=== PATIENT | female | born 1975 | race African-American/Black ===

== ENCOUNTER 2016-08-08 22:24 | Inpatient (IN) | payer BC ==
--- NOTE | ~2016-08-08 | A ---
[facility] Nutrition Therapy DATE: 08/10/16 Patient: MARY JANE DELANEY Physician: NIDHI Address: [facility] [facility] Room/Bed: [address] [place] [address], Zip: [place] [address] Admit Date: 08/09/16 Date of : [birth year] Height: 5 9 Weight: 276 125.2 NUTRITIONAL ASSESSMENT: REASON: Consult RE: diabetic diet education + High BMI documentation 40 yo female admitted for R thigh abscess w/ cellulitis Anthropometrics: Ht: 5'9" Wt: 125.5 kg (276#) BMI: 40.9 Assessment: RD corporate communications intern provided written and verbal diabetic diet education. Pt reported eating "whatever she wants" but has started making small changes in her diet. Pt reported consuming ~2 meals/d, stating it was hard to eat healthy d/t work schedule. RD corporate communications intern encourgaed eating consistently throughout the day and emphasized importance of portion control and meal planning. Pt reported recently intentionally losing ~15# and wanting to continue to lose weight. RD corporate communications intern encouraged continuation of weight loss. Pt verbalized understanding of the topic. Pt had no diet questions at this time. Expect mild compliance with diet when d/c'd. Intervention: 1. Consistent carb Recommendations: 1. Continue consistent carb diet to promote gradual weight loss towards healthy BMI. 2. Encourage compliance with diabetic diet. 3. Re-consult RD if further diet education if needed/requested. RD will f/u per protocol. Respectfully, Haven Whitt, Territory Manager Estrella Melendez MS, RD, LD Food and Nutritional Services [facility] cc: client file
--- NOTE | ~2016-08-08 | DS ---
Unit #: [id number] #: [id number] Patient: MARY JANE DELANEY [id number] [address] [address] [id number] I MR#: [id number] NAME: MARY JANE DELANEY ROOM: [facility] Age: 40 Sex: F Admission Date: 08/09/2016 : 1975 Discharge Date: 08/11/2016 Attending Physician: Brock Wilcox M.D. Primary Care Physician: No Primary Care Physician DISCHARGE SUMMARY HISTORY AND HOSPITAL COURSE Ms. Delaney is a 40-year-old female with a history of diabetes who presented to the emergency room with an abscess in the right medial thigh. It had partially spontaneously drained at home and there was associated cellulitis and necrotic tissue. She was taken to the operating room for drainage and debridement and, on evaluation, there was significant undermining so the wound was debrided widely and saucerized to facilitate wound care. All of the infected necrotic tissue was excised. She was admitted and dressing changes were initiated and the patient was tolerating dressing changes well. [facility] has been consulted to follow the patient at home. Her cellulitis has resolved and her laboratories are unremarkable. Her cultures grew out Staph. epidermidis. DISPOSITION Patient will be discharged home today in stable condition. DISCHARGE INSTRUCTIONS/MEDICATIONS 1. She is to do diet and activity as tolerated and continue her current dressing changes. 2. She is to call [phone] for a followup appointment in 10-14 days to reevaluate the wound. 3. She will be discharged home with a prescription for Lortab for pain control. 4. [facility] will follow her up to ensure dressings are being done appropriately and that she has adequate supplies. Dictated by... Jv Plunkett M.D. RENE/isabelle TD: 08/11/2016 07:37 JOB #: [id number] Unit #: [id number] #: [id number] Patient: MARY JANE DELANEY DISCHARGE SUMMARY Page 1 of 1 X Jv Plunkett MD DISCHARGE SUMMARY
--- NOTE | ~2016-08-08 | OR ---
Unit #: [id number] #: [id number] Patient: MARY JANE DELANEY [id number] [address] [place], [place] [address] [id number] I MR#: [id number] NAME: MARY JANE DELANEY ROOM: [facility] Date of Procedure: 08/09/2016 Admission Date: 08/09/2016 Surgeon: Jv Plunkett M.D. : 1975 Attending Physician: Brock Wilcox M.D. Primary Care Physician: Primary Care Physician No OPERATIVE REPORT PREOPERATIVE DIAGNOSIS Right medial thigh abscess. POSTOPERATIVE DIAGNOSIS Right medial thigh abscess. PROCEDURE PERFORMED Incision, drainage, and debridement of right thigh abscess. Aerobic and anaerobic cultures taken. The debridement was a sharp excisional debridement down into the deep subcutaneous tissue. ESTIMATED BLOOD LOSS 20 mL. ANESTHESIA General endotracheal anesthesia. INDICATIONS FOR PROCEDURE A 40-year-old female with diabetes, who presents with a fluctuant abscess in the medial thigh on the right that is spontaneously drained, had a significant amount of undermining and cellulitis. DESCRIPTION OF PROCEDURE The patient was transported from the emergency room to the operating room, and after induction of general endotracheal anesthesia, she was placed in a frog-leg position and prepped and draped in usual sterile fashion. She had already received IV antibiotics in the emergency room. A probe was used to determine the extent of the undermining and then a circumferential circular incision was made around this necrotic central portion of the abscess. We then sharply dissected down through the soft tissue to completely excise the abscess cavity by sharp excisional debridement. We then irrigated and obtained hemostasis. The wound was packed with Kerlix soaked in Betadine and wrung out. #1 Vicryl stay sutures were used to hold the packing in place. Dry sterile dressing was placed. Sponges and needle counts were correct x3. Cultures were sent to the laboratory. The patient was transported to recovery in stable condition. There was no family available to discuss the findings with at the end of the procedure. Dictated by... Jv Plunkett M.D. Unit #: [id number] #: [id number] Patient: MARY JANE DELANEY RS/radha TD: 08/09/2016 23:29 JOB #: [id number] OPERATIVE REPORT Page 1 of 1 X Jv Plunkett MD PROCEDURE OPERATIVE NOTE
--- NOTE | ~2016-08-08 | CO ---
Unit #: [id number] #: [id number] Patient: MARY JANE DELANEY [id number] [address] [place], [place] [address] [id number] I MR#: [id number] NAME: MARY JANE DELANEY ROOM: [address] Age: Sex: F Admission Date: 08/09/2016 : 1975 Attending Physician: Rachel Corona M.D. Primary Care Physician: No Primary Care Physician Consultation Date: 08/09/2016 CONSULTATION REPORT HISTORY AND EXAM Ms. Delaney is a 40-year-old female with diabetes who presents to the ER with a painful and draining abscess in the right medial thigh with associated cellulitis. Reportedly, she had some cellulitis earlier in the week and was put on Bactrim but it has continued to progress and now has some drainage. PAST MEDICAL HISTORY 1. cardiomyopathy with congestive heart failure. 2. Asthma. 3. Hypertension. 4. Diabetes. 5. Degenerative joint disease. 6. Seasonal allergies. 7. History of keloid excision. 8. Hernia repair. 9. Hyperlipidemia. ALLERGIES She is allergic to ibuprofen and latex. MEDICATIONS Medications currently include: 1. Hydrochlorothiazide. 2. Neurontin. 3. Glucotrol. 4. Bactrim DS. FAMILY HISTORY Atherosclerotic coronary artery disease and diabetes. SOCIAL HISTORY She does smoke and drinks alcohol socially. She lives with her daughter. REVIEW OF SYSTEMS Otherwise unremarkable. PHYSICAL EXAMINATION VITAL SIGNS: On current examination, temperature is 98.5, pulse 77, respirations 16, blood pressure 118/77. GENERAL: She is awake, alert and oriented. HEENT: Unremarkable. No carotid bruits. CARDIAC EXAM: Regular rate and rhythm without murmur. LUNGS: Clear in all tripp. Unit #: [id number] #: [id number] Patient: MARY JANE DELANEY ABDOMEN: Soft. EXTREMITIES: No edema. Medial aspect of the right thigh - she has a fluctuant abscess that I can express purulent drainage from with surrounding cellulitis extending up to the inguinal crease. There is some necrosis in the central portion of the abscess. NEUROLOGICAL: Grossly intact. DIAGNOSTIC STUDIES LABORATORY: Comprehensive metabolic panel within normal limits. Beta hcg is negative. White count 7200, hemoglobin 11.9, platelets 258,000. ASSESSMENT AND PLAN 40-year-old diabetic with a right thigh abscess with associated necrotic tissue. She will need further incision, drainage and debridement. She was started on vancomycin by the medical service. We discussed the procedure including risks, benefits, complications and postoperatively that she will have an open wound that will require packing. She understands and agrees to proceed. Dictated by... David Marquez/cesar TD: 08/09/2016 07:30 JOB #: [id number] CONSULTATION REPORT Page 1 of 1 X Jv Plunkett MD X CONSULTATION REPORT
--- NOTE | ~2016-08-08 | HP ---
Unit #: [id number] #: [id number] Patient: MARY JANE DELANEY [id number] [address] [place], [place] [address] [id number] I MR#: [id number] NAME: MARY JANE DELANEY ROOM: [address] Age: 40 Sex: F Admission Date: 08/09/2016 : 1975 Attending Physician: Rachel Corona M.D. Primary Care Physician: No Primary Care Physician HISTORY AND PHYSICAL CHIEF COMPLAINT Right thigh abscess with cellulitis, failing outpatient Bactrim DS. HISTORY This pleasant, 40-year-old female with hypertension, AODM, and history of cardiomyopathy is admitted for right thigh abscess and cellulitis. Patient developed pain, swelling, and redness, right medial thigh, one week ago. Was seen by her primary care physician several days ago and placed on Bactrim DS. Symptoms worsened and patient experienced spontaneous drainage yesterday of the right thigh abscess. Presents to this emergency department where she has an open wound over the right thigh and associated cellulitis. States that her pain is actually improved. Labs are notable for uncontrolled diabetes with a glucose of 317. Patient states that she ran out of her Glucotrol recently. In the ER, she was bolused with 500 mL of normal saline and repeat Accu-Chek was 186. Given 2 g of vancomycin and Tylenol. PAST MEDICAL HISTORY 1. cardiomyopathy with congestive heart failure. 2. Essential hypertension. 3. 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 4. DJD. 5. Allergies. 6. Hernia repair. 7. Plastic surgery to remove keloids over the ears. ALLERGIES To latex and ibuprofen causing palpitations. HOME MEDICATIONS 1. HCTZ 25 mg daily. 2. Neurontin 300 mg q.4 hours as needed. 3. Glucotrol 5 mg before breakfast. Patient ran out of these medicines a few days ago. 4. Also, Bactrim DS. FAMILY HISTORY Diabetes and CAD. SOCIAL HISTORY The patient lives with her daughter. She smokes 1/2 pack per day of tobacco and drinks occasional alcohol. Unit #: [id number] #: [id number] Patient: MARY JANE DELANEY REVIEW OF SYSTEMS Notable for pain, swelling, drainage right thigh, history of congestive heart failure, hypertension, AODM, neuropathy, DJD, allergies, abovementioned surgeries, and tobacco abuse. All other systems were reviewed and otherwise negative. PHYSICAL EXAMINATION GENERAL APPEARANCE: Pleasant, obese, 40-year-old female currently in no acute distress. VITAL SIGNS: Temperature 97.9, pulse 97, respirations 16, blood pressure 130/71, and O2 saturation is 96% on room air. HEENT: Eyes: PERRLA. Extraocular muscles are intact. Pharynx: Benign. NECK: Supple without adenopathy or thyromegaly. CHEST: Clear. CARDIAC: Normal S1 and S2 without S3, S4, or murmur. ABDOMEN: Bowels sounds are present. No hepatosplenomegaly, tenderness, or masses. EXTREMITIES: Without edema. No ulcers on the feet. There is, however, an area of cellulitis over the right medial thigh with a central opening/wound. Induration also noted. NEUROLOGIC: Patient is awake, alert, and oriented. Cranial nerves are intact. Equal strength throughout. DIAGNOSTIC STUDIES LABORATORY: Hematocrit 38.7 and white blood count 11.3. SMA-12: Glucose 317, which improved. ASSESSMENT 1. Abscess/cellulitis, medial right thigh, despite Bactrim. The abscess now is spontaneously draining. 2. Uncontrolled AODM. Patient needs prescription for Glucotrol. 3. Essential hypertension. 4. cardiomyopathy with history of congestive heart failure. PLANS 1. Check cultures of the right thigh. 2. Continue vancomycin. 3. Will ask [facility] to check the right thigh to see if further I and D is required at this time. 4. Sliding scale insulin. 5. IV fluids and supportive treatment. 6. SCDs for DVT prophylaxis. Dictated by David Stewart/isabelle TD: 08/09/2016 05:06 JOB #: [id number] CC: Louann Lynne Unit #: [id number] #: [id number] Patient: MARY JANE DELANEY HISTORY AND PHYSICAL Page 1 of 1 X Rachel Corona MD HISTORY AND PHYSICAL
--- NOTE | ~2016-08-08 | EKG ---
PATIENT: MARY JANE DELANEY UNIT #: [id number] Ventricular Rate: 79 BPM Atrial Rate: 79 BPM P-R Interval: 162 ms QRS Duration: 88 ms Q-T Interval: 398 ms QTC Calculation(Bezet): 456 ms P [place]: 53 degrees Calculated R [place]: 15 degrees Calculated T [place]: 49 degrees Diagnosis Line: Normal sinus rhythm Diagnosis Line: Normal ECG Diagnosis Line: Diagnosis Line: Confirmed by DUNIA JIMENEZ MD ([id number]) on 08/09/2016 Diagnosis Line: 11:32:01 PM INTERPRETING MD: TONY DOTY
[~2016-08-08 22:24] MED LIST: AMOXICILLIN500 M1 PO; BENADRYL25 MG PO; DIFLUCAN PO; EPIPEN0.3 MG/0.1 IM; FAMOTIDINE PO; FLEXERIL10 MG PO; HCTZ PO; LORTAB 5/500 TA1 TA1 PO; LOTRIMIN30 GM TOP; MEDROL4 MG/DOSE- PO; ORUDIS75 M1 PO; PEPCID AC20 M2 PO; PREDNISONE PO; PREDNISONE10 MG/DOSE PO
[2016-08-08 22:40] LABS: BASOPHIL# 0.1 X10e3 (0-0.3); BASOPHIL% 0.8 % (0-2.5); EOSINOPHIL# 0.2 X10e3 (0-0.7); EOSINOPHIL% 2.2 % (0.0-7.0); HEMATOCRIT 38.7 % (35.0-45.0); HEMOGLOBIN 12.2 gm/dL (12.0-16.0); LYMPHOCYTE% 26.3 % (17.0-45.0); MEAN CELL VOLUME 86.4 FL (83-96); MEAN CORPUSCULAR HEMOGLOBIN 27.3 PG (28-34); MEAN CORPUSCULAR HGB CONC 31.6 g/dL (30-36); MEAN PLATELET VOLUME 8.3 FL (6.5-11.5); MONOCYTE# 0.6 X10e3 (0-1.0); MONOCYTE% 5.4 % (3.0-12.0); NEUTROPHIL# 7.4 X10e3 (1.5-7.1); NEUTROPHIL% 65.3 % (40-75); PLATELET COUNT 268 X10e3 (140-420); RED BLOOD COUNT 4.48 X10e (3.90-5.30); RED CELL DISTRIBUTION WIDTH 15.6 % (11.0-15.5); WHITE BLOOD COUNT 11.3 X10e3 (4.0-10.5)
[2016-08-08 22:44] LABS: DIFF IND NO
[2016-08-08 23:04] LABS: ALBUMIN SERUM 3.5 g/dL (3.5-5.0); BILIRUBIN, DIRECT 0.1 mg/dL (0.0-0.2); BILIRUBIN,INDIRECT 0.3 mg/dL (0.0-0.9); BILIRUBIN,TOTAL 0.4 mg/dL (0.2-2.0); CREATININE SERUM 0.6 mg/dL (0.6-1.4); GLOM FILT RATE Estimated 131.2 mL/min (>60); PROTEIN TOTAL SERUM 7.9 g/dL (6.0-8.3)
[2016-08-09] MEDS ORDERED: HYDROCHLOROTHIA25 MG PO (01:25)
[2016-08-09] MEDS ORDERED: GLUCOTROL PO (01:26)
[2016-08-09] MEDS ORDERED: NEURONTIN300 MG PO (01:26)
[2016-08-09 05:37] LABS: BASOPHIL# 0.1 X10e3 (0-0.3); BASOPHIL% 0.9 % (0-2.5); EOSINOPHIL# 0.1 X10e3 (0-0.7); EOSINOPHIL% 1.7 % (0.0-7.0); HEMATOCRIT 36.9 % (35.0-45.0); HEMOGLOBIN 11.9 gm/dL (12.0-16.0); LYMPHOCYTE# 2.4 X10e3 (1.0-3.5); LYMPHOCYTE% 33.9 % (17.0-45.0); MEAN CELL VOLUME 85.7 FL (83-96); MEAN CORPUSCULAR HEMOGLOBIN 27.6 PG (28-34); MEAN CORPUSCULAR HGB CONC 32.2 g/dL (30-36); MEAN PLATELET VOLUME 7.9 FL (6.5-11.5); MONOCYTE# 0.6 X10e3 (0-1.0); MONOCYTE% 7.7 % (3.0-12.0); NEUTROPHIL% 55.8 % (40-75); PLATELET COUNT 258 X10e3 (140-420); RED CELL DISTRIBUTION WIDTH 15.5 % (11.0-15.5); WHITE BLOOD COUNT 7.2 X10e3 (4.0-10.5)
[2016-08-09 05:38] LABS: DIFF IND NO
[2016-08-09 06:13] LABS: CALCIUM SERUM 8.6 mg/dL (8.4-10.2); CREATININE SERUM 0.4 mg/dL (0.6-1.4)
[2016-08-09 22:02] LABS: URINE SOURCE CLEAN CATCH
[2016-08-09 22:10] LABS: URINE APPEARANCE CLOUDY; URINE BILIRUBIN NEG (NEG); URINE BLOOD NEG (NEG); URINE COLOR YELLOW; URINE GLUCOSE >1000 MG/DL (NEG); URINE KETONE TRACE (NEG); URINE LEUKOCYTE ESTERASE TRACE (NEG); URINE NITRATE NEG (NEG); URINE PH 5.5 (5-8); URINE PROTEIN NEG (NEG); URINE SPECIFIC GRAVITY 1.035 (1.003-1.035); URINE UROBILINOGEN 0.2 MG/DL (NEG)
[2016-08-09 22:12] LABS: CULTURE INDICATED? YES; URBCS1 AUWI 0-2 /[HPF] (0-2); URINE BACTERIA AUWI 1+ (NEGATIVE); URINE SQUAMOUS EPITHELIAL CELL FEW /[HPF]
[2016-08-10 04:56] LABS: BASOPHIL# 0.1 X10e3 (0-0.3); BASOPHIL% 1.3 % (0-2.5); EOSINOPHIL# 0.2 X10e3 (0-0.7); EOSINOPHIL% 1.6 % (0.0-7.0); HEMATOCRIT 35.1 % (35.0-45.0); HEMOGLOBIN 11.3 gm/dL (12.0-16.0); LYMPHOCYTE# 2.4 X10e3 (1.0-3.5); LYMPHOCYTE% 25.4 % (17.0-45.0); MEAN CELL VOLUME 85.6 FL (83-96); MEAN CORPUSCULAR HEMOGLOBIN 27.6 PG (28-34); MEAN CORPUSCULAR HGB CONC 32.2 g/dL (30-36); MEAN PLATELET VOLUME 7.8 FL (6.5-11.5); MONOCYTE# 0.4 X10e3 (0-1.0); MONOCYTE% 4.6 % (3.0-12.0); NEUTROPHIL# 6.3 X10e3 (1.5-7.1); NEUTROPHIL% 67.1 % (40-75); PLATELET COUNT 258 X10e3 (140-420); RED CELL DISTRIBUTION WIDTH 14.8 % (11.0-15.5); WHITE BLOOD COUNT 9.4 X10e3 (4.0-10.5)
[2016-08-10 05:18] LABS: DIFF IND NO
[2016-08-10 06:57] LABS: BUN/CREATININE RATIO 15.71; CALCIUM SERUM 8.8 mg/dL (8.4-10.2); CREATININE SERUM 0.7 mg/dL (0.6-1.4); GLOM FILT RATE Estimated 124.7 mL/min (>60); MAGNESIUM 1.6 mg/dL (1.6-3.0); POTASSIUM 4.2 mmol/L (3.5-5.1)
[2016-08-11] MEDS ORDERED: LORTAB 7.5-3251 EACH PO (13:53)
== END 2016-08-11 15:31 | disposition home health service (06) | DRG 571 ==
LOC: CED 22:24 → CEDOF 08-09 02:15 → C4C 08-09 20:23
PROVIDERS: Internal Medicine; Nurse Practitioner Family; Specialist
PROC: 0JBL0ZZ Excision of Right Upper Leg Subcutaneous Tissue and Fascia, Open Approach (ICD-10-PCS; principal; 2016-08-09 11:30)
DX: L02.415 Cutaneous abscess of right lower limb (principal); I96 Gangrene, not elsewhere classified; E11.42 Type 2 diabetes mellitus with diabetic polyneuropathy; E11.65 Type 2 diabetes mellitus with hyperglycemia; Z68.41 Body mass index [BMI] 40.0-44.9, adult; I10 Essential (primary) hypertension; J45.909 Unspecified asthma, uncomplicated; M19.90 Unspecified osteoarthritis, unspecified site; Z83.3 Family history of diabetes mellitus; Z82.49 Family history of ischemic heart disease and other diseases of the circulatory system; F17.210 Nicotine dependence, cigarettes, uncomplicated; L03.115 Cellulitis of right lower limb; Z91.040 Latex allergy status; Z79.84 Long term (current) use of oral hypoglycemic drugs; E66.01 Morbid (severe) obesity due to excess calories
CPT/HCPCS: 36415; 80048; 80076; 80202; 81003; 82947; 83735; 84703; 85025; 87040; 87070; 87075; 87077; 87086; 87186; 87205; 93005; 96365; 96366; 99285; J1170; J1815; J2250; J2405; J3010; J3370

== ENCOUNTER → 2016-10-14 | Outpatient (CLI) | payer BC ==
[~2016-10-14] MED LIST changes: +GLUCOTROL PO; +HYDROCHLOROTHIA25 MG PO; +LORTAB 7.5-3251 EACH PO; +NEURONTIN300 MG PO
--- NOTE | ~2016-10-14 | MY11 ---
[facility] A Service of [facility] RADIOLOGY TEXT RESULTS PATIENT: MARY JANE DELANEY LOCATION: [facility] : [birth year] UNIT #: [id number] AGE: [address]: ALYX FONTANA APRN SEX: F ORDER DR: [id number] [address] [address] [id number] O MR#: [id number] Acc #: [id number] NAME: MARY JANE DELANEY : 1975 SEX: F STUDY DATE/TIME: 10/14/2016 15:22 UNIT: [facility] ROOM: STUDY DESCRIPTION: MY Mammogram Screening Dig John Attending Physician: Alyx Fontana Aprn Ordering Physician: Physician Non-Staff Primary Care Physician: No Primary Care Physician MEDICAL IMAGING REPORT This report is preliminary unless electronic signature is present. EXAM Digital screening mammogram 10/14/2016 HISTORY 40-year-old woman baseline mammogram. No risk elevation. COMPARISON STUDIES None FINDINGS Digital imaging of each breast was completed utilizing a two-view examination of each breast in craniocaudal and mediolateral-oblique projections. Review and interpretation of digital mammograms include a second review in conjunction with FDA-approved CAD device. There is a normal parenchymal presentation bilaterally consistent with the patient's age. There are no breast masses imaged and no parenchymal asymmetry is visualized. There are no suspicious microcalcifications and I see no focal architectural disturbance. IMPRESSION Negative screening digital mammogram. One-year followup recommended. Patients over the age of 40 are entered into a reminder system with target due date for the next mammogram. A result letter will also be sent to the patient. BIRADS: 1 Negative Dictated by... Jarrell Honeycutt M.D. THIS IS AN ELECTRONICALLY VERIFIED REPORT [facility] A Service [facility] RADIOLOGY TEXT RESULTS PATIENT: MARY JANE DELANEY LOCATION: [facility] : 73 UNIT #: [id number] AGE: [address]: ALYX FONTANA APRN SEX: F ORDER DR: Jarrell Honeycutt M.D. at 10/17/2016 8:12 AM SHWETA/ashely TD: 10/14/2016 17:52 JOB #: [id number] MEDICAL IMAGING REPORT Page 1 of 1
== END | disposition home or self-care (01) ==
LOC: SMAM 08-19 10:30
DX: Z12.31 Encounter for screening mammogram for malignant neoplasm of breast (principal)
CPT/HCPCS: G0202